=== PATIENT | female | born 1960 | race Caucasian/White ===

== ENCOUNTER 2017-08-17 09:42 | Emergency (ER) | payer OTHER ==
[~2017-08-17] VITALS: Ht 157.5 cm; Wt 63.5 kg
[~2017-08-17 09:42] MED LIST: AMBIEN10 MG PO; ATIVAN1 MG PO; ATIVAN2 MG PO; CONZIP100 M1 PO; KLONOPIN1 MG PO; MOTRIN800 MG PO; NEURONTIN600 MG PO; NOR10T PO; SEROQUEL400 M1 PO; T3 PO; ZOL100 PO
[2017-08-17 10:09] VITALS: Ht 157.5 cm; Wt 63.5 kg
[2017-08-17 12:44] VITALS: BP 119/67
== END 2017-08-17 12:44 | disposition home or self-care (01) ==
LOC: ED 09:42
DX: M25.561 Pain in right knee (principal); E78.5 Hyperlipidemia, unspecified; M54.30 Sciatica, unspecified side; G62.9 Polyneuropathy, unspecified; M16.0 Bilateral primary osteoarthritis of hip; Z88.8 Allergy status to other drugs, medicaments and biological substances

== ENCOUNTER 2017-09-02 11:15 | Emergency (ER) | payer OTHER ==
[~2017-09-02] VITALS: Ht 157.5 cm; Wt 63.5 kg
[2017-09-02 11:20] VITALS: Ht 157.5 cm; Wt 63.5 kg
[2017-09-02 14:25] VITALS: BP 143/87
== END 2017-09-02 14:25 | disposition home or self-care (01) ==
LOC: ED 11:15
DX: F41.9 Anxiety disorder, unspecified (principal); G89.29 Other chronic pain; Z88.1 Allergy status to other antibiotic agents; Z88.8 Allergy status to other drugs, medicaments and biological substances

== ENCOUNTER 2017-10-05 13:07 | Emergency (ER) | payer OTHER ==
[~2017-10-05] VITALS: Ht 157.5 cm; Wt 63.5 kg
[2017-10-05 13:32] VITALS: Ht 157.5 cm; Wt 63.5 kg
[2017-10-05 13:55] LABS: BASOPHIL % 0.7 % (0-2); PLATELET COUNT 353 x10^3mcL (130-400); RED CELL DISTRIBUTION WIDTH 14.1 % (11.5-14.5)
[2017-10-05 14:03] LABS: CALCIUM 9.4 mg/dL (8.5-10.1); CARBON DIOXIDE 21.7 mmol/L (21-32); CREATININE SERUM 1.4 mg/dL (0.6-1.0)
[2017-10-05 14:15] LABS: BILIRUBIN TOTAL 0.1 mg/dL (0.20-1.00); TOTAL PROTEIN, SERUM 7.2 g/dL (6.4-8.2)
[2017-10-05 14:18] LABS: ALBUMIN 3.2 g/dL (3.4-5.0)
[2017-10-05 14:44] VITALS: BP 110/74
== END 2017-10-05 14:44 | disposition home or self-care (01) ==
LOC: ED 13:07
PROVIDERS: Emergency Medicine
DX: F13.239 Sedative, hypnotic or anxiolytic dependence with withdrawal, unspecified (principal); J44.1 Chronic obstructive pulmonary disease with (acute) exacerbation; F13.20 Sedative, hypnotic or anxiolytic dependence, uncomplicated; Z88.8 Allergy status to other drugs, medicaments and biological substances; Z88.6 Allergy status to analgesic agent
CPT/HCPCS: 36415; J7613; J7644

== ENCOUNTER 2018-03-16 14:31 | Inpatient (IN) | payer OTHER ==
[~2018-03-16] VITALS: Ht 157.5 cm; Wt 58.8 kg
[2018-03-16 14:42] VITALS: Ht 157.5 cm; Wt 58.8 kg
[2018-03-16 16:02] LABS: BASOPHIL % 1.1 % (0-2); PLATELET COUNT 353 x10^3mcL (130-400)
[2018-03-16 16:07] LABS: CALCIUM 9.4 mg/dL (8.5-10.1); CARBON DIOXIDE 20.4 mmol/L (21-32); CHLORIDE SERUM 107 mmol/L (98-107); CREATININE SERUM 1.1 mg/dL (0.6-1.0); GFR1 54 mL/min; GLUCOSE SERUM 83 mg/dL (74-106); POTASSIUM SERUM 3.8 mmol/L (3.5-5.1); SODIUM SERUM 139 mmol/L (136-145)
[2018-03-16 16:09] LABS: RED CELL DISTRIBUTION WIDTH 14.7 % (11.5-14.5)
[2018-03-16 16:12] LABS: ALBUMIN 3.8 g/dL (3.4-5.0); ALKALINE PHOSPHATASE 107 U/L (46-116); ALT/SGPT 12 U/L (14-59); AST/SGOT 18 U/L (15-37); BILIRUBIN TOTAL 0.3 mg/dL (0.20-1.00); TOTAL PROTEIN, SERUM 7.8 g/dL (6.4-8.2)
[2018-03-16 20:58] LABS: UA SPECIFIC GRAVITY 1.025 (1.005-1.035); microscopic required? YES; urine erythrocyte NEGATIVE (NEGATIVE)
[2018-03-16 21:02] LABS: AMPHETAMINE QUAL UR POSITIVE (See below)
[2018-03-17] MEDS ORDERED: EFFEXOR-XR75 MG (15:35)
[2018-03-17 16:11] VITALS: BP 113/50
[2018-03-17 20:28] VITALS: BP 105/59
[2018-03-18 09:30] VITALS: BP 107/59
[2018-03-18 17:50] VITALS: BP 113/67
[2018-03-18 21:00] VITALS: BP 110/60
[2018-03-19 06:10] VITALS: BP 115/67
[2018-03-19 09:33] VITALS: BP 104/57
[2018-03-19 17:49] VITALS: BP 107/69
[2018-03-19 20:29] VITALS: BP 108/54
[2018-03-20 05:28] VITALS: BP 105/66
[2018-03-20 08:34] VITALS: BP 105/62
[2018-03-20 15:49] VITALS: BP 105/62
== END 2018-03-20 16:53 | disposition home or self-care (01) | DRG 347 ==
LOC: ED 14:31 → MU 16:04
PROVIDERS: Emergency Medicine
DX: M54.5 Low back pain (principal); R45.851 Suicidal ideations; F33.2 Major depressive disorder, recurrent severe without psychotic features; G40.409 Other generalized epilepsy and epileptic syndromes, not intractable, without status epilepticus; J44.9 Chronic obstructive pulmonary disease, unspecified; G89.29 Other chronic pain; M54.9 Dorsalgia, unspecified; E78.5 Hyperlipidemia, unspecified; F15.10 Other stimulant abuse, uncomplicated; N39.0 Urinary tract infection, site not specified; F41.9 Anxiety disorder, unspecified; M19.90 Unspecified osteoarthritis, unspecified site; Z87.891 Personal history of nicotine dependence; Z88.8 Allergy status to other drugs, medicaments and biological substances
CPT/HCPCS: G0480; J2270; J7030; Q0162